=== PATIENT | female | born 1995 | race Caucasian/White ===

== ENCOUNTER 2016-06-08 21:56 | Emergency (ER) | payer BC ==
[2016-06-08 22:03] VITALS: BMI 24.0
--- NOTE | 2016-06-08 22:28 | PDOC ---
[id number]: No Limitations - History of Present Illness Initial Comments: 06/08/16 23:11 The patient is a 21 year old female, with a significant past medical history of hydrocephalus/encephalopathy s/p shunt, who presents to the emergency department with a right sided diffuse headache, neck pain and chills since yesterday. She rates it a 5/10 in severity currently in the ED. She states that 6 years ago, she had her shunt repaired in the [place]. She states that she experienced a similar headache before her shunt needed to be repaired 6 years ago. She does not have a PCP as she just came to the [facility] in June 2015. The patient denies fever, blurry vision, vision changes, nausea or vomiting. The patients primary language is Burmese, her cousin is with her in the ED. LMP: approximately 05/14/2016 Allergies: None reported. Past Surgical History: Shunt Social History: Non smoker. Denies alcohol or drug use. <Jessica Noel - Last Filed: 06/09/16 02:42> <Jesus Ag - Last Filed: 06/17/16 07:32> - General Chief Complaint: Headache Stated Complaint: HEADACHE Time Seen by Provider: 06/08/16 22:27 Past History <Jessica Noel - Last Filed: 06/09/16 02:42> - Past Medical History Other medical history: hydrocephalus/encephalopathy - Surgical History Neurologic Surgery: Yes (evp sales shunt 2010) - Psycho/Social/Smoking Cessation Hx Suicidal Ideation: No Smoking History: Never smoked <Jesus Ag - Last Filed: 06/17/16 07:32> - Past Medical History Allergies/Adverse Reactions: Allergies Allergy/AdvReac Type Severity Reaction Status Date / Time No Known Allergies Allergy Verified 06/08/16 22:01 Home Medications: Ambulatory Orders NK [No Known Home Medication] 06/08/16 Review of Systems - Review of Systems Able to Perform ROS?: Yes Comments:: 06/08/16 23:08 CONSTITUTIONAL: +Chills. No fever, no fatigue EYES: No visual changes ENT: No ear pain, no sore throat CARDIOVASCULAR: No chest pain, no palpitations RESPIRATORY: No cough, no SOB GI: No abdominal pain, no nausea, no vomiting, no constipation, no diarrhea GENITOURINARY: No dysuria, no frequency, no hematuria MUSCULOSKELETAL: +Neck pain. No back pain, no joint pain, no myalgias SKIN: No rash NEURO: +Headache <Jessica Noel - Last Filed: 06/09/16 02:42> *Physical Exam - Vital Signs Last Vital Signs Temp Pulse Resp BP Pulse Ox 98.7 F 127 H 18 153/87 99 06/08/16 22:01 06/08/16 22:01 06/08/16 22:01 06/08/16 22:01 06/08/16 22:01 - Physical Exam Comments: 06/09/16 01:19 CONSTITUTIONAL: Well-appearing; well-nourished; in no apparent distress. HEAD: Normocephalic; atraumatic. EYES: PERRL; EOM intact. ENMT: External appears normal; normal oropharynx. NECK: Positive nuchal rigidity. No cervical lymphadenopathy. CARD: Normal S1, S2; no murmurs, rubs, or gallops. RESP: Normal chest excursion with respiration; breath sounds clear and equal bilaterally; no wheezes, rhonchi, or rales. ABD: Soft, non-distended; non-tender; no palpable organomegaly, no palpable hernias. EXT: Normal ROM in all four extremities; non-tender to palpation; distal pulses intact. SKIN: Warm, dry, no rash. NEURO: No focal neurological deficiencies. <Jessica Noel - Last Filed: 06/09/16 02:42> - Vital Signs Last Vital Signs Temp Pulse Resp BP Pulse Ox 98.7 F 127 H 18 153/87 99 06/08/16 22:01 06/08/16 22:01 06/08/16 22:01 06/08/16 22:01 06/08/16 22:01 <Jesus Ag - Last Filed: 06/17/16 07:32> ED Treatment Course - LABORATORY CBC & Chemistry Diagram: 06/08/16 23:00 06/08/16 23:00 <Jessica Noel - Last Filed: 06/09/16 02:42> - LABORATORY CBC & Chemistry Diagram: 06/08/16 23:00 06/08/16 23:00 <Jesus Ag - Last Filed: 06/17/16 07:32> Medical Decision Making - Medical Decision Making 06/09/16 00:47 EXAM: HEAD CT WITHOUT CONTRAST Reviewed By: Dr. Karen Schroeder IMPRESSION: No acute brain parenchymal abnormality. No hemorrhage, mass or acute territorial infarct. 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 Ventriculostomy catheter entering right parietal stephanie hole and terminating in left lateral ventricle. Clear visualized paranasal sinuses. Visualized mastoid air cells clear. Called Dr. Helio Scott at at 00:46, 01:15. Referred to answering service, awaiting callback. Dr. Scott returned call at 01:18, case discussed. <Jessica Noel - Last Filed: 06/09/16 02:42> - Medical Decision Making 06/09/16 03:14 Patient is a 21-year-old female with history of AP[employer]ANCE [employer] shunt who presented with atraumatic headache for the past 2 days, viral syndrome-like symptoms and nuchal rigidity. 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 Case was discussed with Dr. Jagjit Garsia of neurosurgery who recommended LP the purposes of ruling out meningitis. Patient had received 2 g of IV ceftriaxone immediately upon arrival in the ER. Up he was performed under sterile conditions and approximately 4 mL of clear CSF was obtained. <Jesus Ag - Last Filed: 06/17/16 07:32> *DC/Admit/Observation/Transfer - Attestations Scribe Attestion: 06/08/16 22:30 Documentation prepared by Jessica Noel, acting as medical records library professor for Jesus Ag MD. <Jessica Noel - Last Filed: 06/09/16 02:42> - Attestations Physician Attestion: 06/09/16 03:13 The documentation was prepared by the scribe under my direct supervision. I have reviewed the documentation which correctly represents the findings, medical decision-making and critical action taken by me. <Jesus Ag - Last Filed: 06/17/16 07:32> Diagnosis at time of Disposition: Headache, Viral illness - Discharge Dispostion Disposition: HOME Condition at time of disposition: Improved - Referrals Referrals: Lyndsay Henson MD [Staff Physician] - Alexandra Borja MD [Staff Physician] - - Patient Instructions Printed Discharge Instructions: DI for Viral Syndrome, DI for Headache Additional Instructions: Please encourage bed rest, plenty of fluids. Tylenol Motrin for pain and fever. Return if nay problems Print Language: YI
[2016-06-08] MEDS ORDERED: ACETAMINOPHEN 325 MG TABLET (FP) PO ONE (22:41)
[2016-06-08] MEDS ORDERED: SODIUM CHLORIDE 1,000 ML IV STA (22:42)
[2016-06-08] MEDS ORDERED: CEFTRIAXONE 2 GM in DEXTROSE 5%-WATER - 100 ML IVPB ONE (22:42)
[2016-06-08] MEDS ORDERED: CEFTRIAXONE 100 ML IVPB ONE (23:14)
[2016-06-08] MEDS ORDERED: ACETAMINOPHEN 325 MG TABLET (FP) ONE (23:14)
[2016-06-08 23:19] LABS: BASOPHIL 0.3 % (0-2.0); EOSINOPHIL 0.6 % (0-4.5); MCH 30.1 pg (25.7-33.7); MCHC 34.6 g/dl (32.0-36.0); MEAN CELL VOLUME 86.9 fl (80-96); PLATELET COUNT 235 K/MM3 (134-434); RDW 13.1 % (11.6-15.6); WHITE BLOOD COUNT 10.9 K/mm3 (4.0-10.0)
[2016-06-08 23:32] LABS: INR 1.02 (0.82-1.09); PROTHROMBIN TIME (PATIENT) 11.2 SEC (9.98-11.88)
[2016-06-09 00:24] LABS: ALBUMIN 4.5 g/dl (3.4-5.0); ANION GAP 12 (8-16); BILIRUBIN,TOTAL 0.5 mg/dL (0.2-1.0); CO2 24 mmol/L (21-32); CREATININE 0.8 mg/dL (0.55-1.02); GLUCOSE,RANDOM 91 mg/dL (74-106); SGOT/AST 12 U/L (15-37); SGPT/ALT 16 U/L (12-78)
[2016-06-09 00:26] LABS: ALK PHOS 115 U/L (45-117)
[2016-06-09] MEDS ORDERED: MIDAZOLAM HCL 2 MG/2 ML SINGLE DOSE VIAL ONE (01:40)
[2016-06-09] MEDS ORDERED: LIDOCAINE 1%/EPI 1:100000 (50 ML MULTI DOSE VIAL) ONE (01:41)
[2016-06-09 02:44] LABS: CSF APPEARANCE CLEAR; CSF COLOR COLORLESS; CSF RBC 1 /mm3
[2016-06-09 03:48] LABS: GLUCOSE,CSF 56 mg/dL (50-80)
--- NOTE | 2016-06-09 04:22 | PDOC ---
*Physical Exam - Vital Signs Last Vital Signs Temp Pulse Resp BP Pulse Ox 98.7 F 127 H 18 153/87 99 06/08/16 22:01 06/08/16 22:01 06/08/16 22:01 06/08/16 22:01 06/08/16 22:01 ED Treatment Course - LABORATORY CBC & Chemistry Diagram: 06/08/16 23:00 06/08/16 23:00 - ADDITIONAL ORDERS Additional order review: Laboratory Results 06/09/16 06/08/16 06/08/16 02:17 23:00 23:00 INR Sodium 142 Potassium 4.2 Chloride 106 Carbon Dioxide 24 Anion Gap 12 BUN 10 Creatinine 0.8 Creat Clearance w eGFR > 60 Random Glucose 91 Calcium 9.0 Total Bilirubin 0.5 AST 12 L ALT 16 Alkaline Phosphatase 115 Total Protein 8.0 Albumin 4.5 Serum , Qual Negative CSF Appearance Clear CSF Color Colorless CSF WBC 0 CSF RBC 1 CSF Neutrophils Y CSF Diff Comment Tin Can Feeder CSF Glucose 56 CSF Total Protein 96 H 06/08/16 23:00 INR 1.02 Sodium Potassium Chloride Carbon Dioxide Anion Gap BUN Creatinine Creat Clearance w eGFR Random Glucose Calcium Total Bilirubin AST ALT Alkaline Phosphatase Total Protein Albumin Serum , Qual CSF Appearance CSF Color CSF WBC CSF RBC CSF Neutrophils CSF Diff Comment CSF Glucose CSF Total Protein 06/08/16 23:00 Influenza Types A,B Antigen (KEVIN) - Final Nasopharyngeal Swab - Final 06/08/16 23:00 RBC 4.64 MCV 86.9 MCHC 34.6 RDW 13.1 MPV 10.0 Neutrophils % 73.0 Lymphocytes % 18.4 Monocytes % 7.7 Eosinophils % 0.6 Basophils % 0.3 - Medications Given in the ED: ED Medications Discontinued Medications Generic Name Dose Route Start Last Admin Trade Name Freq PRN Reason Stop Dose Admin Acetaminophen 650 mg 06/08/16 22:41 06/08/16 23:15 Tylenol - PO 06/08/16 22:42 650 mg ONCE ONE Administration Ceftriaxone Sodium 2 gm/ 100 mls @ 200 mls/hr 06/08/16 22:42 06/08/16 23:15 Dextrose IVPB 06/08/16 23:11 200 mls/hr ONCE ONE Administration Sodium Chloride 1,000 mls @ 1,000 mls/hr 06/08/16 22:42 06/08/16 23:15 Normal Saline - IV 06/08/16 23:41 1,000 mls/hr ASDIR STA Administration Medical Decision Making - Medical Decision Making 06/09/16 04:20 LP stable. Pt to be discharged. Pt to follow up neurology *DC/Admit/Observation/Transfer Diagnosis at time of Disposition: Viral illness Headache Qualifiers: Headache chronicity pattern: acute headache Intractability: not intractable - Discharge Dispostion Disposition: HOME Condition at time of disposition: Improved Admit: No - Referrals Referrals: Lyndsay Henson MD [Staff Physician] - Alexandra Borja MD [Staff Physician] - - Patient Instructions Printed Discharge Instructions: DI for Headache, DI for Viral Syndrome Additional Instructions: Please encourage bed rest, plenty of fluids. Tylenol Motrin for pain and fever. Return if nay problems Print Language: [place]
[2016-06-09 04:27] VITALS: BP 112/77; PULSE 99; TEMP 98
== END 2016-06-09 04:27 | disposition home or self-care (01) ==
LOC: JER 21:56
PROC: 3E03329 Introduction of Other Anti-infective into Peripheral Vein, Percutaneous Approach (ICD-10-PCS; principal; 2016-06-08)
PROC: 009U3ZZ Drainage of Spinal Canal, Percutaneous Approach (ICD-10-PCS; 2016-06-08)
DX: B34.9 Viral infection, unspecified (principal); Z86.69 Personal history of other diseases of the nervous system and sense organs
CPT/HCPCS: 36415; 70360-TC; 70450-TC; 71020-TC; 74000-TC; 80053; 82945; 84157; 84703; 85025; 85610; 87040; 87070; 87205; 87804; 89050; 99283-25